=== PATIENT | female | born 1960 | race Hispanic/Latino ===

== ENCOUNTER 2017-09-05 18:43 | Emergency (ER) | payer SELFPAY ==
--- NOTE | 2017-09-05 20:27 | RAD ---
CHEST TWO VIEWS 09/05/17 The heart is normal in size for body habitus. There is no congestive change or pleural effusion at th e moment. No lobar consolidation or effusion was seen. The lungs are slightly hyperexpanded. Some of the markings in the lung bases are perhaps minimally prominent, but to some extent this could be due to overlying soft tissues. Degenerative changes are seen in the spine. IMPRESSION: No definite acute findings. Serial followup films could be useful depending upon the symptoms. POS: HOME
== END 2017-09-05 19:27 | disposition home or self-care (01) ==
LOC: BURERS 18:43
DX: R05 Cough (principal); E11.9 Type 2 diabetes mellitus without complications; I10 Essential (primary) hypertension
CPT/HCPCS: 71046